=== PATIENT | female | born 1995 | race Caucasian/White ===

== ENCOUNTER 2017-06-06 13:26 | Inpatient (IN) | payer OTHER ==
[~2017-06-06] VITALS: Ht 162.6 cm; Wt 100.7 kg
[2017-06-06 14:47] LABS: ABSOLUTE BASOPHIL COUNT 0 /CUMM (0.0-0.2); ABSOLUTE EOSINOPHIL COUNT 0 /CUMM (0.0-0.7); ABSOLUTE GRANULOCYTE CT 9.1 /CUMM (1.4-6.5); ABSOLUTE LYMPH COUNT 2.1 /CUMM (1.2-3.4); ABSOLUTE MONOCYTE COUNT 0.6 /CUMM (0.10-0.60); BASOPHIL % 0.2 % (0.0-2.0); EOSINOPHIL % 0.3 % (0-5); GRANULOCYTE % 76.5 % (42.2-75.2); HEMATOCRIT 35.6 % (37-47); MEAN CORPUSCULAR HGB 29.4 PG (27.0-31.0); MEAN CORPUSCULAR HGB CONC 34.7 G/DL (33.0-37.0); MEAN CORPUSCULAR VOLUME 84.6 FL (81.0-99.0); PLATELET COUNT 326 /CUMM (130-400); RBC DISTRIBUTION WIDTH 13.3 % (11.5-14.5); RED BLOOD CELL CT 4.21 /CUMM (4.20-5.40); WHITE BLOOD CELL COUNT 11.9 /CUMM (4.8-10.8)
[2017-06-06 17:31] LABS: ABSOLUTE BASOPHIL COUNT 0 /CUMM (0.0-0.2); ABSOLUTE EOSINOPHIL COUNT 0 /CUMM (0.0-0.7); ABSOLUTE LYMPH COUNT 2.1 /CUMM (1.2-3.4); ABSOLUTE MONOCYTE COUNT 0.7 /CUMM (0.10-0.60); BASOPHIL % 0.2 % (0.0-2.0); EOSINOPHIL % 0.3 % (0-5); GRANULOCYTE % 76.1 % (42.2-75.2); HEMATOCRIT 34.2 % (37-47); MEAN CORPUSCULAR HGB 29.3 PG (27.0-31.0); MEAN CORPUSCULAR HGB CONC 34.7 G/DL (33.0-37.0); MEAN CORPUSCULAR VOLUME 84.3 FL (81.0-99.0); MEAN PLATELET VOLUME 7.9 FL (7.4-10.4); PLATELET COUNT 337 /CUMM (130-400); RBC DISTRIBUTION WIDTH 13.1 % (11.5-14.5); RED BLOOD CELL CT 4.05 /CUMM (4.20-5.40); WHITE BLOOD CELL COUNT 11.8 /CUMM (4.8-10.8)
--- NOTE | 2017-06-06 17:31 | History & Physical Pre-Op ---
General Information and HPI MD Statement: I have seen and personally examined GABBY ROYAL and documented this H&P. The patient is a 22 year old F who presented with a patient stated chief complaint of []. Ruptured membranes at 8:09 PM yesterday. Patient subsequently had intercourse this morning. The patient called around 12:30 complaining of rupture membranes and some lower abdominal pains. Patient had a positive amnio sure. On she has contractions every 2-3 minutes waiting 5 out of 10 with discussed epidural we've discussed nitazoxanide agents given opportunity ask questions and signed her consents. Her care started at Dr. Coelho's office she was a late transfer to my care. Patient has some elevated blood pressures here been check some PIH labs patient denies headache visual changes blurry vision right upper quadrant pain History of Present Illness: 22-year-old 1 para 0 at 37-4/7 weeks gestation with questionable rupture of membranes positive amnio sure I at 8 and 9 PM the preceding day patient is now elisa every 2-3 minutes greater than 5 out of 10 Allergies/Medications Allergies: Coded Allergies: lactose (Mild, stomach ache 06/06/17) Uncoded Allergies: Med Allergies NKDA Past History Surgical History Pertinent Surgical History: none Past Family/Social History Psychosocial History Smoking Status: Never Smoked Review of Systems Review of Systems: Negative review of systems Exam & Diagnostic Data Last 24 Hrs of Vital Signs/I&O Intake & Output 06/06 1600 06/06 0800 06/06 0000 Intake Total Output Total Balance Patient 222 lb Weight Physical Exam: Well-built white female in no apparent distress with glasses HEENT PERRLA EOMI Lungs clear Abdomen soft estimated weight 3600 g Pelvic 3 cm 80% membranes are palpable vertex 0 Extremities +1 edema +2 reflexes Assessment/Plan Assessment/Plan: Assessment is term rupture membranes plan is for on ampicillin after 24 hours of rupture on possible augmentation with Pitocin on pain management with nitrous oxide an epidural As Ranked By This Provider Problem List: 1.
--- NOTE | 2017-06-07 07:43 | Labor & Delivery Summary ---
Delivery Summary Vaginal Delivery: Vaginal: vertex Episiotomy/Lacerations: Episiotomy/Lacerations: none Placenta: Placenta: spontanteous, normal, 3 vessel (CULTURES DONE) Anesthesia: block Apgars - 1 Min: 9 Apgars - 5 Min: 9 Additional Comments: NSVDVIABLE MALE WITH SINGLE PUSH OVER INTACT PERINEUM.SUCTIONED WITH BULB UNTIL CLEAR. 3VESSEL CORD PLACENTA BY CCT INTACT.PERINEUM INTACT POST DELIVERY A +.
[2017-06-08 07:58] LABS: ABSOLUTE BASOPHIL COUNT 0.1 /CUMM (0.0-0.2); ABSOLUTE EOSINOPHIL COUNT 0.1 /CUMM (0.0-0.7); ABSOLUTE GRANULOCYTE CT 11.1 /CUMM (1.4-6.5); ABSOLUTE LYMPH COUNT 2.5 /CUMM (1.2-3.4); BASOPHIL % 0.4 % (0.0-2.0); EOSINOPHIL % 0.5 % (0-5); GRANULOCYTE % 75.4 % (42.2-75.2); HEMATOCRIT 30.3 % (37-47); MEAN CORPUSCULAR HGB 29.7 PG (27.0-31.0); MEAN CORPUSCULAR HGB CONC 34.3 G/DL (33.0-37.0); MEAN CORPUSCULAR VOLUME 86.6 FL (81.0-99.0); MEAN PLATELET VOLUME 8.1 FL (7.4-10.4); PLATELET COUNT 285 /CUMM (130-400); RBC DISTRIBUTION WIDTH 13.5 % (11.5-14.5); WHITE BLOOD CELL COUNT 14.7 /CUMM (4.8-10.8)
--- NOTE | 2017-06-08 10:43 | PN- Post Delivery/GYN ---
Subjective Subjective: NO COMPLAINTS Objective Last 24 Hrs of Vital Signs/I&O PER CHART Physical Exam: PE WELL BUILT BF IN NAD ABD BS= NT FUNDUS FIRM NT EXT -EDEMA -HOMANS LOCHIA MINIMAL Assessment/Plan Assessment/Plan ASSESS S/P PLAN CONT PPC
== END 2017-06-09 11:06 | DRG 775 ==
LOC: CBCO 13:26 → GNO 14:09
PROVIDERS: Specialist
PROC: 10E0XZZ Delivery of Products of Conception, External Approach (ICD-10-PCS; principal; 2017-06-07)
DX: O80 Encounter for full-term uncomplicated delivery (principal)
CPT/HCPCS: 87070; 87075; 87205; GNOP; GNOS; 81001; 84112; 87086; J0290; J2405; J7120